=== PATIENT | male | born 1940 ===

== ENCOUNTER 2023-11-02 16:48 | Observation (INO) | payer MEDICARE ==
[~2023-11-02] VITALS: Ht 172.7 cm; Wt 99.9 kg
[~2023-11-02 16:48] MED LIST: Ferrous Glucon325 M2 PO; NAPR500 PO; Super B Comple1 EAC2 PO
[2023-11-02 18:01] LABS: Albumin, Blood 2.8 g/dL (3.4-5.0); Albumin/Globulin Ratio 0.7 (0.8-1.8); Bilirubin, Total 1.2 mg/dL (0.1-1.0); Bun/Creatinine Ratio 24.1 (12.0-20.0); Creatinine, Blood 1.12 mg/dL (0.60-1.20); Potassium, Blood 3.6 mmol/L (3.5-5.5); Total Protein, Blood 6.8 g/dL (6.4-8.2)
[2023-11-02 18:15] LABS: BASOPHILS ABSOLUTE AUTO 0.04 K/mm3 (0.00-0.23); BASOPHILS PERCENT AUTO 1 % (0-2); EOSINOPHILS ABSOLUTE AUTO 0.23 K/mm3 (0.00-0.68); EOSINOPHILS PERCENT AUTO 3 % (0-6); Hematocrit 35.4 % (37.0-53.0); Hemoglobin 12.8 g/dL (13.5-17.5); IMMATURE GRAN ABSOLUTE AUTO 0.05 K/mm3 (0.00-0.10); IMMATURE GRAN PERCENT AUTO 1 % (0-1); LYMPHOCYTES ABSOLUTE AUTO 1.25 K/mm3 (0.84-5.20); LYMPHOCYTES PERCENT AUTO 17 % (21-46); MONOCYTES PERCENT AUTO 8 % (4-13); Mean Corpuscular HGB 34.8 pg (26.0-34.0); Mean Corpuscular HGB Conc 36.2 g/dL (31.5-36.5); Mean Corpuscular Volume 96 fL (80-100); Mean Platelet Volume 8.8 fL (9.1-12.4); NEUTROPHILS ABSOLUTE AUTO 5.31 K/mm3 (1.96-9.15); NEUTROPHILS PERCENT AUTO 71 % (41-73); Platelet Count 164 K/mm3 (150-400); RDW Coefficient Variation 11.9 % (11.7-14.2); RDW Standard Deviation 41.7 fL (35.1-46.3); Red Blood Cell Count 3.68 M/mm3 (4.30-5.90); White Blood Cell Count 7.48 K/mm3 (4.00-11.30)
[2023-11-02] MEDS ORDERED: Cyclobenzaprine5 MG PO (18:18)
[2023-11-02] MEDS ORDERED: OXYC5 PO (18:18)
[2023-11-02 21:24] LABS: Source, Urine Clean Catch
[2023-11-02 21:33] LABS: Bilirubin, Urine Neg (Neg); Blood, Urine Neg (Neg); Glucose Qualitative, Urine Neg (Neg); Ketones, Urine Neg (Neg); Leukocyte Esterase, Urine Neg (Neg); Nitrite, Urine Neg (Neg); Protein, Urine Neg (Neg); Specific Gravity, Urine 1.015 (1.003-1.022); Urobilinogen, Urine 2+ (Normal)
[2023-11-02 21:37] LABS: Appearance, Urine Clear (Clear); Color, Urine Yellow (P-Yellow)
[2023-11-02 22:25] LABS: Influenza A, PCR NEGATIVE (NEGATIVE); Influenza B, PCR NEGATIVE (NEGATIVE); Resp Syncytial Virus, PCR NEGATIVE (NEGATIVE); SARS-Cov-2 (COVID-19) PCR, MMC NEGATIVE (NEGATIVE)
[2023-11-02 22:51] LABS: Thyroid Stimulating Hormone 1.42 uIU/mL (0.360-4.800)
[2023-11-02 23:34] VITALS: BP 136/81
[2023-11-03 04:23] VITALS: BP 137/86
--- NOTE | 2023-11-03 05:00 | NUR ---
SHIFT SUMMARY NOC ADMIT FROM ED WITH DX OF PNA. PLEASANT AND COOPERATIVE WITH CARE. A/O X4, BUT SPOKANE. PT IS 1PA TO STAND TO USE BSC AND URINAL. INFUSION OF NS @ 125 ML/HR X 1 BAG. PT HAD LAMINECTOMY PERFORMED ON 10/29/23 AT [facility], HAS 2 INCISION SITES WITH GAUZE AND TRANSPARANT DRESSING IN PLACE C/D/I. PT HAS NOT HAD C/O OF PAIN SINCE TRANSFER TO UNIT. PT IS CURRENTLY RESTING WITH BED IN LOWEST POSITION, AND CALL LIGHT WITHIN REACH.
[2023-11-03 05:51] LABS: Bun/Creatinine Ratio 19.4 (12.0-20.0); Calcium, Blood 8.6 mg/dL (8.5-10.1); Creatinine, Blood 1.08 mg/dL (0.60-1.20); Potassium, Blood 3.4 mmol/L (3.5-5.5)
[2023-11-03 07:25] VITALS: BP 125/82
--- NOTE | 2023-11-03 13:29 | NUR ---
PT DISCHARGED 1145 WITH DC INSTRUCTIONS. FAMILY AT BEDSIED, SUPPORTIVE IN CARE. WHEELCHAIR OUT TO PRIVATE CAR [facility]. BACK DRESSING CDI, APPLIED NEW EXUDRY. GAVE FAMILY EXTRA DRESSING. INSTRUCTED TO KEEP AREA DRY LONG SURGEON SUGGESTED. NO NEW MEDS
== END 2023-11-03 11:59 | disposition home or self-care (01) ==
LOC: ER 16:48 → MEDS 16:50 → ER 22:22 → MEDS 22:55 → ENPENDDIS 11-03 11:38 → MEDS 11-03 11:59
PROVIDERS: Emergency Medicine; ADMIT Internal Medicine
DX: J18.9 Pneumonia, unspecified organism (principal); G92.8 Other toxic encephalopathy; T40.2X5A Adverse effect of other opioids, initial encounter; T48.1X5A Adverse effect of skeletal muscle relaxants [neuromuscular blocking agents], initial encounter; E87.1 Hypo-osmolality and hyponatremia; I10 Essential (primary) hypertension; Z79.899 Other long term (current) drug therapy; Z20.822 Contact with and (suspected) exposure to COVID-19
CPT/HCPCS: 0241U; 36415; 71045; 80048; 80053; 81003; 83880; 84145; 84443; 84484; 85025; 93005; 93010; 96361; 96365; 97110; 97161; 99285-25; A9270; G0378; J0696; J7030